=== PATIENT | male | born 1935 | race Caucasian/White ===

== ENCOUNTER 2018-08-05 16:41 | Emergency (ER) | payer MEDICARE, BC ==
[~2018-08-05] VITALS: Ht 185.4 cm; Wt 84.1 kg
[~2018-08-05 16:41] MED LIST: ADDERALL XR15 MG PO; ADDERALL5 MG PO; BP MED X 2; COLACE 100100 MG/CAP PO; FLUOXETINE; HCTZ 25MG TAB25 MG PO; NORCO 325 MG-51 TAB PO; PROZAC40 MG PO; REMERON 15M15 MG/TAB PO; REMERON45 MG PO; ZESTRIL 20MG TA20 MG PO
[2018-08-05] MEDS ORDERED: NORCO 325 MG-51 TAB PO (18:30)
[2018-08-05 18:55] VITALS: BP 182/92; PULSE 69
== END 2018-08-05 19:06 | disposition home or self-care (01) ==
LOC: COL.ER 16:41
DX: S43.005A Unspecified dislocation of left shoulder joint, initial encounter (principal); S51.811A Laceration without foreign body of right forearm, initial encounter; I10 Essential (primary) hypertension; Z87.891 Personal history of nicotine dependence; Z85.118 Personal history of other malignant neoplasm of bronchus and lung; Z85.46 Personal history of malignant neoplasm of prostate; Z85.828 Personal history of other malignant neoplasm of skin; W01.0XXA Fall on same level from slipping, tripping and stumbling without subsequent striking against object, initial encounter
CPT/HCPCS: J2704

== ENCOUNTER → 2019-09-06 | Outpatient (CLI) | payer MEDICARE, BC | LOC: COL.RAD 13:30 | DX: J38.01 Paralysis of vocal cords and larynx, unilateral (principal); I65.21 Occlusion and stenosis of right carotid artery; J98.4 Other disorders of lung; J43.9 Emphysema, unspecified | CPT/HCPCS: Q9967 ==